=== PATIENT | male | born 1980 | race Caucasian/White ===

== ENCOUNTER 2020-04-05 07:30 | Inpatient (IN) | payer OTHER, SELFPAY ==
[2020-04-05] VITALS (13 sets, daily range): BP systolic 90–147; BP diastolic 61–92; PULSE 69–135; RESP 16–30; TEMP 36.7–38.7; O2SAT 92–100; BMI 30.7
--- NOTE | ~2020-04-05 | CT_ITS ---
EXAMINATION: CT abdomen pelvis w con DATE: 04/05/2020 09:18 INDICATION: Right lower quadrant abdominal pain for one day TECHNIQUE: Computed tomography (CT) of the abdomen and pelvis was performed with 100 cc Omnipaque 350 intravenous contrast. Automated exposure control and iterative reconstruction technique were employe d. Exam dose: 902.37 mGy-cm total exam DLP. COMPARISON: None. FINDINGS: There is mild atelectasis or scarring at the base of the middle lobe and right lower lobe. The lung bases are otherwise clear. Normal heart size. No pericardial or pleural effusion. Small sliding hiatal hernia. There is thickening of the distal esophageal wall, possibly due to esoph agitis. The liver, gallbladder, bile ducts, spleen, pancreas and pancreatic duct appear normal. Normal morpho logy of the adrenal glands. No renal mass lesion or urinary tract calculus or hydroureteronephrosis is evident. The urinary bladd er, prostate gland and seminal vesicles are unremarkable. Small fat-containing inguinal hernias, left larger than right. The appendix is thickened, measuring up to 12 mm diameter. There is adjacent mild fat stranding. Find ings suggest acute appendicitis. No abscess or free fluid is evident. There is minimal sigmoid colon diverticulosis; no CT evidence of diverticulitis. No bowel obstruction or bowel wall thickening, pneumatosis or intraperitoneal free air is noted other blackmon. Degenerative spurring of the thoracic and lumbar spine; no suspicious osteolytic or osteoblastic lesi ons are noted. IMPRESSION: Acute appendicitis Minimal sigmoid colon diverticulosis Small sliding hiatal hernia, possible distal esophagitis Bilateral small fat-containing inguinal hernias Dr. Ceballos telephoned the report to emergency room physician Dr. Iraheta on 04/05/2020 at 0929 hours. Reviewed, dictated and finalized at [facility]. Reviewed, dictated and finalized at [facility]. Y NUTRITIONIST IMPRESSION: Acute appendicitis Minimal sigmoid colon diverticulosis Small sliding hiatal hernia, possible distal esophagitis Bilateral small fat-containing inguinal hernias Dr. Ceballos telephoned the report to emergency room physician Dr. Iraheta on 021 at 0929 hours.
--- NOTE | 2020-04-05 07:36 | ED.ABDPAIN ---
HPI - Abdominal Pain General Chief Complaint: Abdominal Pain Stated Complaint: ABD pain Time Seen by Provider: 04/05/20 07:34 Source: RN notes reviewed History of Present Illness HPI narrative: Patient presents emergency department from home for right lower quadrant abdominal pain. Patient states pain began last night at 9 PM pain is located in the right lower quadrant does not radiate described as sharp and stabbing denies any fevers, nausea vomiting diarrhea or any other symptoms states he took no pain medication at home denies any other symptoms at this time Related Data Allergies Allergy/AdvReac Type Severity Reaction Status Date / Time amoxicillin Allergy Unknown Verified 04/05/20 08:13 Review of Systems Review of Systems: Narrative: Gen.: Denies fevers or chills ENT: Denies congestion Respiratory: Denies shortness of breath or cough CV: Denies chest pain or palpitations GI: Reports lower right lower quadrant abdominal pain, denies nausea, emesis or diarrhea denies burning, urgency, frequency or hematuria Musculoskeletal: Denies back pain or muscle pain Neuro: Denies numbness, tingling, weakness or focal weakness Skin: Denies rash Except as documented, all other systems reviewed and negative [facility] Past Medical History Medical History Patient denies significant medical history Surgical History Surgical History No history of previous surgery Social History Social History Social History: The patient lives at home with his mother and her caregiver. He has not had a PCP in years. Smoker of 1 PPD for about 22 years. Drinks alcohol every 3 days, about 3-4 drinks at night. 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 Gender identity (if verbalized by the patient): Male Exam Narrative: Exam Narrative: APPEARANCE: No acute distress, nontoxic, resting in bed HEENT: Normocephalic, atraumatic, OMM RESPIRATORY: No respiratory distress, clear to auscultation bilaterally with no rhonchi wheezing or rales CARDIOVASCULAR: RRR s murmur ABDOMINAL: Soft, nondistended, tender palpation right lower quadrant no tenderness right upper quadrant, left upper quadrant left lower quadrant no rebound or guarding MUSCULOSKELETAl: Moves all extremities. No clubbing, cyanosis or edema. NEURO: Awake and alert. Following commands, speech normal, no focal deficits SKIN:: Warm, dry. Normal Color PSYCHIATRIC: Normal affect/mood Course Course Emergency Course: Discussed with Dr. Mccallum. At this time request patient be started on Invanz and will take to the OR Discussed with patient plan for or in agreement at this time Vital Signs Vital signs: Vital Signs Temperature 98.1 F 04/05/20 08:08 Pulse Rate 94 04/05/20 08:08 Respiratory Rate 18 04/05/20 08:08 Blood Pressure 141/92 H 04/05/20 08:08 Pulse Oximetry 100 04/05/20 08:08 Temperature 98.1 F 04/05/20 08:08 Pulse Rate 88 04/05/20 11:10 Respiratory Rate 18 04/05/20 11:10 Blood Pressure 147/91 H 04/05/20 11:10 Pulse Oximetry 99 04/05/20 11:10 MDM - Abdominal Pain Lab Data Result diagrams: 04/05/20 08:08 04/05/20 08:08 Labs: Lab Results 04/05/20 04/05/20 04/05/20 Range/Units 07:57 08:08 08:08 WBC 13.6 H (4.5-10.0) K/mm3 RBC 4.89 (4.6-6.20) M/mm3 Hgb 16.6 (14.0-18.0) g/dL Hct 46.1 (42.0-52.0) % MCV 94.3 (80-100) fl MCH 33.9 (26-34) pg MCHC 36.0 (32-36) g/dl RDW 11.9 (11.5-14.5) % Plt Count
--- NOTE | 2020-04-05 08:07 | PC.NURSE ---
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 This RN tried 2 times to gain IV access with no success. Will have 2nd RN try. Will inform of this.
[2020-04-05 08:13] LABS: Add Urine Microscopic? YES; Appearance Urine Clear (Clear); Bilirubin Urine Negative (Negative); Blood Urine Negative (Negative); Color Urine Yellow (Yellow); Glucose Urine UA 1+ mg/dL (Negative); Ketones Urine Trace mg/dL (Negative); Leukocyte Esterase Ur Negative LEU/UL (Negative); Mucus Urine Rare /lpf; Nitrate Urine Negative (Negative); Protein Urine 1+ mg/dL (Negative); Specific Grav Ur 1.018 (1.001-1.035); WBC Urine 0-3 /hpf
[2020-04-05 08:17] LABS: Basophils Percent Auto 0.3 % (0.2-1.2); Eosinophils Absolute Auto 0.1 K/mm3 (0-0.3); Eosinophils Percent Auto 0.5 % (0-4.4); Hematocrit 46.1 % (42.0-52.0); Hemoglobin 16.6 g/dL (14.0-18.0); Immature Granulocyte Absolute 0.04 K/mm3 (0.00-0.031); Immature Granulocyte Percent A 0.3 % (0-0.5); Lymphocytes Absolute Auto 1.25 K/mm3 (0.9-3.2); Lymphocytes Percent Auto 9.2 % (18.3-44.2); Mean Corpuscular Hemoglobin 33.9 pg (26-34); Mean Corpuscular Volume 94.3 fl (80-100); Mean Platelet Volume 9.3 fl (7.4-10.4); Monocytes Percent Auto 7.3 % (2.6-8.5); Neutrophils Absolute Auto 11.2 K/mm3 (1.3-6.7); Neutrophils Percent Auto 82.4 % (45.5-73.1); Platelet Count Result 184 k/mm3 (150-375); Red Blood Count 4.89 M/mm3 (4.6-6.20); Red Cell Distribution Width 11.9 % (11.5-14.5); White Blood Count 13.6 K/mm3 (4.5-10.0)
[2020-04-05 08:31] LABS: Alanine Aminotransferase 82 U/L (4-50); Albumin Level 4.1 g/dL (3.5-5.1); Alkaline Phosphatase 137 U/L (38-126); Anion Gap 7 mmol/L (8-16); Aspartate Amino Transferase 66 U/L (17-59); Bilirubin,Total 0.7 mg/dL (0.2-1.3); Blood Urea Nitrogen 6 mg/dL (9-20); Calcium 8.8 mg/dL (8.4-10.2); Carbon Dioxide 26 mmol/L (22-30); Chloride 100 mmol/L (98-107); Estimated CRCL calculation 139 ml/min; Estimated Glomerular Filt Rate > 60; Glucose 153 mg/dL (75-110); Lipase 187 U/L (23-300); Potassium 3.7 mmol/L (3.4-5.0); Sodium 133 mmol/L (137-145)
--- NOTE | 2020-04-05 08:37 | PC.NURSE ---
IV access nurse here to try and start a line on pt.
[2020-04-05] MEDS: SODIUM CHLORIDE 0.9% IV 1,000 ML 999 ML IV CONT (08:56)
[2020-04-05] MEDS: KETOROLAC 30 MG/ML VIAL (*BKC) IV PUSH (08:56)
[2020-04-05] MEDS: ERTAPENEM 1 GM/NS 50 ML 1 GM/50 ML BAG IVPB (10:35)
--- NOTE | 2020-04-05 10:47 | PM.IMHP ---
H&P: HPI History of Present Illness Date/Time: 04/05/20 10:47 Chief Complaint: RLQ Abdominal pain Narrative: Oracio Aguirre is a 39 year old male with no known medical history, who presented to the ER with complaints of right lower quadrant abdominal pain. He reports an onset of abdominal pain around 9pm last night that was initially mild and in the mid upper abdomen. Over the next few hours, this pain began intensifying and localized in the right lower quadrant. Due to the unrelenting pain, he presented to the ER for evaluation. CT scan of the abdomen and pelvis showed acute appendicitis with no evidence of perforation or abscess. Labs showed white blood cell count of 13,600. Our service was contacted by the ER physician for surgical evaluation of acute appendicitis. The patient is now seen in the ER. He reports his abdominal pain is still in the RLQ but has improved some with rest. Denies nausea, vomiting, fever, chills, diarrhea, or any other complaints. No history of abdominal surgery in the past. He has not seen a primary care provider in many years. Denies any recent known contact with anyone who has tested positive for COVID-19 and denies any symptoms of loss of taste/smell, congestion, sore throat, headache, or cough. Review of Systems Review of Systems: All systems reviewed & are unremarkable except as noted in HPI and below Constitutional: Constitutional: Reports as per HPI, Denies chills, Denies fatigue, Denies fever(s), Denies headache(s) and Denies weakness Eyes: Eyes: Reports no additional eye complaints, Denies change in vision, Denies dry eyes and Denies eye pain ENT: Reports system reviewed and no additional complaints, except as documented, Denies dysphagia, Denies dizziness, Denies headache(s) and Denies hearing loss Cardiovascular: Cardiovascular: Reports no additional cardiovascular complaints, Denies chest pain, Denies pedal edema, Denies leg edema, Denies lightheadedness, Denies radiating jaw, neck or arm pain and Denies dyspnea Respiratory: Respiratory: Reports no additional respiratory complaints, Denies cough, Denies hemoptysis, Denies dyspnea and Denies wheezing Gastrointestinal: Gastrointestinal: Reports as per HPI, Reports no additional gastrointestinal complaints, Reports abdominal pain, Denies bloating, Denies change in bowel habits, Denies dysphagia, Denies diarrhea, Denies loose stools, Denies nausea and Denies vomiting Genitourinary: Genitourinary: Reports no additional male genitourinary complaints, Denies hematuria and Denies dysuria Musculoskeletal: Musculoskeletal: Reports no additional musculoskeletal complaints, Denies abnormal gait, Denies deformity, Denies joint swelling, Denies numbness and Denies tingling Integumentary/Breasts: Skin/Breast: Denies new lesions, Denies rash and Denies wounds Neurologic: Reports system reviewed and no additional complaints, except as documented, Denies abnormal gait, Denies dizziness, Denies headache(s), Denies numbness, Denies tingling and Denies weakness Psychiatric: Psychiatric: Reports no additional psychiatric complaints, Denies anxiety and Denies depression Endocrine: Endocrine: Denies fatigue PMFSH Past Medical History Medical History Patient denies significant medical history Surgical History Surgical History No history of previous surgery Social History Social History Social History: The patient lives at home with his mother and her caregiver. He has not had a PCP in years. Smoker of 1 PPD for about 22 years. Drinks alcohol every 3 days, about 3-4 drinks at night. Smoking packs per day: 1 Smoking cigarettes per day: 20.0 Years smoked: 22 Smoking pack-years: 22.00 Smoking status: Current every day smoker Tobacco type: cigarettes Alcohol intake: current Substance use: never L
--- NOTE | 2020-04-05 11:37 | WPDANESEPPF ---
Anes - Initial Pre Proc Eval Procedure: Operation Date: 04/05/20 13:00 Proposed Procedures p Laparoscopic Appendectomy - Miky Mccallum DO Date/Time: 04/05/20 11:37 Surgeon: Miky Mccallum DO Pre Op Diagnosis: Acute appendicitis Patient Data Age: 39 Gender: M Height: 1.88 m Weight: 104.5 kg Last Vital Signs Temp 38.7 C H 04/05/20 11:31 Pulse 135 H 04/05/20 11:31 Resp 30 H 04/05/20 11:31 BP 142/80 H 04/05/20 11:31 Pulse Ox 99 04/05/20 11:31 Allergies Allergy/AdvReac Type Severity Reaction Status Date / Time amoxicillin Allergy Unknown Verified 04/05/20 08:13 Laboratory Tests 04/05/20 04/05/20 04/05/20 07:57 08:08 08:08 WBC 13.6 K/mm3 H K/mm3 (4.5-10.0) RBC 4.89 M/mm3 M/mm3 (4.6-6.20) Hgb 16.6 g/dL g/dL (14.0-18.0) Hct 46.1 % % (42.0-52.0) MCV 94.3 fl fl (80-100) MCH 33.9 pg pg (26-34) MCHC 36.0 g/dl g/dl (32-36) RDW 11.9 % % (11.5-14.5) Plt Count 184 k/mm3 k/mm3 (150-375) MPV 9.3 fl fl (7.4-10.4) Immature Gran % (Auto) 0.3 % % (0-0.5) Neut % (Auto) 82.4 % H % (45.5-73.1) Lymph % (Auto) 9.2 % L % (18.3-44.2) [place] % (Auto) 7.3 % % (2.6-8.5) Eos % (Auto) 0.5 % % (0-4.4) Baso % (Auto) 0.3 % % (0.2-1.2) Lymph # (Auto) 1.25 K/mm3 K/mm3 (0.9-3.2) [place] # (Auto) 1.0 K/mm3 H K/mm3 (0.1-0.6) Eos # (Auto) 0.1 K/mm3 K/mm3 (0-0.3) Baso # (Auto) 0.0 K/mm3 K/mm3 (0.0-0.1) Abs Immat Gran (auto) 0.04 K/mm3 H K/mm3 (0.00-0.031) Absolute Neuts (auto) 11.2 K/mm3 H K/mm3 (1.3-6.7) Absolute Nucleated RBC 0.0 K/mm3 K/mm3 (0.0-0.012) Nucleated RBC % 0.0 % % (0.0-0.2) Sodium 133 mmol/L L mmol/L (137-145) Potassium 3.7 mmol/L mmol/L (3.4-5.0) Chloride 100 mmol/L mmol/L (98-107) Carbon Dioxide 26 mmol/L mmol/L (22-30) Anion Gap 7 mmol/L L mmol/L (8-16) BUN 6 mg/dL L mg/dL (9-20) Creatinine 0.70 mg/dL mg/dL (0.7-1.3) Estim Creat Clear Calc 139 ml/min ml/min Estimated GFR > 60 (59 - ) Glucose 153 mg/dL H mg/dL (75-110) Calcium 8.8 mg/dL mg/dL (8.4-10.2) Total Bilirubin 0.7 mg/dL mg/dL (0.2-1.3) AST 66 U/L H U/L (17-59) ALT 82 U/L H U/L (4-50) Alkaline Phosphatase 137 U/L H U/L (38-126) Total Protein 7.0 g/dL g/dL (6.3-8.2) Albumin 4.1 g/dL g/dL (3.5-5.1) Lipase 187 U/L U/L (23-300) Urine Color Yellow (Yellow) Urine Appearance Clear (Clear) Urine pH 7.0 (5.0-9.0) Ur Specific [place] 1.018 (1.001-1.035) Urine Protein 1+ mg/dL H mg/dL (Negative) Urine Glucose (UA) 1+ mg/dL H mg/dL (Negative) Urine Ketones Trace mg/dL mg/dL (Negative) Ur Blood (Man) Negative (Negative) Urine Nitrate Negative (Negative) Urine Bilirubin Negative (Negative) Urine Urobilinogen 2.0 mg/dL H mg/dL (<2.0) Leukocyte Esterase Rfl Negative ЮЛИЯ/UL ЮЛИЯ/UL (Negative) Urine RBC 3-5 /hpf H /hpf (0-2) Urine WBC 0-3 /hpf /hpf Urine Mucus Rare /lpf /lpf Patient hx anesthesia problems: none Family hx anesthesia problems: none [facility] Past Medical History Medical History Patient denies significant medical history Surgical History Surgical History No history of previous surgery Social History Social History Social History: The patient lives at home with his mother and her caregiver. He has not had a PCP in y
--- NOTE | 2020-04-05 12:19 | WPDHPUPDATE1 ---
History and Physical Update Update Date/Time: 04/05/20 12:19 History and Physical has been reviewed, including an updated exam of the patient. There are NO changes in the patient's condition. Risks, benefits, and alternatives have been discussed and questions answered. Patient agrees to proceed with procedure.
[2020-04-05] MEDS: ACETAMINOPHEN 500 MG TABLET 1000 MG PO (12:24)
[2020-04-05] MEDS: LACTATED RINGERS 1,000 ML 30 ML IV CONT ×2 (12:25→13:52)
[2020-04-05] MEDS: BUPIVACAINE HCL 0.5% PF 30 ML VIAL INFILTRATE (13:31)
--- NOTE | 2020-04-05 13:54 | PM.PROC ---
Procedure Note - Detailed Date of procedure: 04/05/20 Pre-op diagnosis: Acute appendicitis, Sepsis Post-op diagnosis: same Procedure performed: Laparoscopic Appendectomy Description of procedure: Procedure as well as risks, benefits, and alternatives were explained to the patient. The patient agreed to proceed. Written consent was obtained and placed in chart prior to procedure. The patient was brought back to surgical suite. He was placed supine on operating table. Time-out was done to confirm the patient and procedure. The patient was then intubated by the Anesthesia Department. His abdomen was prepped and draped in sterile fashion using chlorhexidine prep. A 5 mm incision was made just to the left of the patient's umbilicus and a 5 mm Optiview trocar was advanced through the abdominal layers under direct visualization. Once inside the peritoneal cavity, carbon dioxide insufflation was used to create a pneumoperitoneum. The camera was inserted and the abdomen was inspected. No immediate abnormalities were identified. The patient was then placed in slight Trendelenburg position and rotated to the left. A 5 mm incision was made in the suprapubic region in midline and a 5 mm trocar was inserted under direct visualization. A 12 mm incision was made in the left lower quadrant and a 12 mm trocar was inserted under direct visualization. The right lower quadrant was carefully inspected. The cecum was identified and then this was traced back to the appendix. The appendix was identified and grasped at the mesoappendix and lifted anteriorly. Careful blunt dissection was carried out at the base of the appendix through the mesoappendix using a [place] grasper. An Endo-KATIE 45 mm blue load stapler was then advanced across the base of the appendix and clamped and fired. A white reload was then clamped across the mesoappendix and fired. This freed up our appendix completely. It was then placed in an EndoCatch bag and removed through the left lower quadrant port. The staple lines were then inspected. Hemostasis appeared adequate and the staple lines appeared secure. The area was then irrigated with sterile saline. The pelvis was then carefully inspected and irrigated with sterile saline as well and the remainder of the abdomen was carefully inspected. The patient was then flattened out in bed. One final inspection was made around the abdominal cavity and no other abnormalities were seen. The left lower quadrant port was removed and a Marco-Anita cone was used to approximate the fascia with a 0 Vicryl simple interrupted suture. The remaining ports were then removed under direct visualization. The camera was removed and the pneumoperitoneum was released. 0.5% bupivacaine with epinephrine was infiltrated locally around each of the incisions. The skin of the incisions was then approximated using 4-0 Monocryl subcuticular suture and Exofin glue was applied on top. The patient was then awakened from anesthesia, extubated, and transferred to Recovery. Anesthesia: GETA and local (0.5% bupivicaine with epi) Surgeon: Miky Mccallum DO Estimated blood loss (mL): 5 Pathology: yes (Appendix) Complications: No immediate complications Condition: stable Disposition: floor Findings: This is a 39-year-old man who presented to the emergency department this morning with right lower quadrant pain that started around 9:00 p.m. last night. His pain is located in the right lower quadrant. He denied any prior symptoms before last night. In the emergency department a CT was obtained and this showed evidence of acute appendicitis. Decision was made to proceed with laparoscopic appendectomy, possible open. Well in the preoperative area he began experiencing fevers and was also becoming tachycardic. He was started on broad-spectrum IV antibiotics. Laparoscopic appendectomy was performed. The distal half of the appendix appeared gangrenous. There is no definite evidence
--- NOTE | 2020-04-05 15:36 | PC.NURSE ---
This patient, Oracio Aguirre, was admitted to 2 Medical Room 261-01. Patient/family oriented to hospital policies and general routines including ID bracelet, bed and alarms, visiting hours, pain management, procedures, bathroom and other care routines, personal items, smoking policy, room service/diet, and visiting hours. Information on how to activate the Rapid Response Team has been discussed. Patient/Family are encouraged to report perceived risks to care and to ask questions if they do not understand what they are told or what they should do.
--- NOTE | 2020-04-05 18:00 | PM.DS ---
DS: Admitting Diagnosis Admitting Diagnosis Admitting Diagnosis: Acute appendicitis DS: Discharge Diagnosis Discharge Diagnosis (1) Acute appendicitis: Code(s): K35.80 - Unspecified acute appendicitis Status: Acute DS: Summary Hospital Course Reason for hospitalization: acute appendicitis Hospital Course: this is a 40-year-old man who presented to the emergency department on 04/05/20 with right lower quadrant abdominal pain. His pain started the night before. Imaging in the emergency department showed evidence of acute appendicitis. He was then taken urgently for laparoscopic appendectomy. Surgery was uncomplicated, but the appendix did appear to have evidence of gangrene. Patient was admitted to the hospital postoperatively for continued treatment for intra-abdominal infection. That afternoon, he was seen leaving the facility several times to go outside to smoke. He was ambulating along distance to do this, and the nurses advised him that he needed to stay within the unit. The patient was adamant about being able to go out and smoke and felt that he did not need to be hospitalized for this. Since the patient was not compliant with the nurses recommendations and he was able to tolerate ambulating without much difficulty , the decision was made to discharge in with oral antibiotics and he was advised to return for any signs of recurrent infection. Time spent discussing smoking cessation with patient: 3 to 10 minutes Status at Discharge Functional status at discharge: independent ambulation Overall status at discharge: patient is progressing back to baseline Time Spent with Patient Time attestation: Total time spent providing and/or coordinating discharge services: Time spent: Less than 30 minutes DS: Data Data Completed and Pending Completed studies during hospitalization: Pending at discharge 04/05/20 13:28 Surgical [PTH] Routine Discharge Plan Discharge Attending physician on discharge: Miky Blum Consulting providers: Vazquez Daley ; Ester Cavanaugh ; Jose Ceballos Discharging Clinician: Miky Blum Patient Disposition: Home, Self-Care Activity: other - see discharge instructions Diet: other - see discharge instructions Wound Care Instructions: other - see discharge instructions Discharge Instructions: DISCHARGE INSTRUCTION SHEET FOR HERNIA, GALLBLADDER AND APPENDIX SURGERIES DR. BLUM PATIENT TO TAKE HOME 1. May shower in 24 hours, no soaking in bath x 2weeks. 2. Call office for: Wound increasingly painful or bleeding Vomiting Fever of greater than 101 degrees 3. If no bowel movement for three days, take 1 oz. (30 ml) Milk of Magnesia or MiraLax 17g 1 to 2 times daily. 4. No heavy lifting > 10-15 pounds x weeks for hernia repairs and 2 weeks for laparoscopic cholecystectomy or appendectomy. 5. No driving for 3 days or while taking narcotic pain medications. 6. Ice to surgical site for 48 hours (30 min on, then 30 min off). 7. Up walking 10-30 minutes three times per day. 8. Resume previous home medications. 9. Follow-up 10-14 days in office for wound check or as previously scheduled. ([phone]) 10. Oral pain medications prescription to be sent to pharmacy. Take Tylenol 500mg every 6 hours and Ibuprofen 600mg every 6 hours for the first 2 days, then as needed. 11. NUTRITION: Start out by drinking fluids and increase your diet as tolerated. If you experience nausea, try dry toast, crackers, and 7-UP. If nausea or vomiting persists, contact your surgeon?s office. 12. Gallbladders-Low Fat Diet for 2 weeks (send care note of low fat diet) 13. Inguinal Hernias-wear scrotal support for 48 hours 14. Abdominal Hernias-if sent home with abdominal binder, wear for the first 2 weeks (may remove to shower or at night to sleep).
--- NOTE | 2020-04-05 18:00 | PM.PNGS ---
Subjective Subjective Date/Time Seen: 04/05/20 18:00 Patient walked outside multiple times to smoke despite being offered a nicotene patch and being advised to stay in his hospital unit. He was informed of the hospital policies. Patient desires to be discharged home because he is feeling fine and doesn't see the need to stay. He was informed that due to his fever and tachycardia preop and the findings during surgery, he was kept in the hospital for close observation for possible ongoing infection. Patient still wanted to go home. Will discharge home with 10 days of Levaquin and Flagyl. Patient may call for follow up appointment. Objective Data Vital Signs Vital Signs: Vital Signs - 24 hr 04/05/20 08:08 04/05/20 10:43 04/05/20 11:10 Temperature 36.7 C Pulse Rate 94 69 88 Respiratory Rate 18 18 18 Blood Pressure 141/92 H 119/61 147/91 H Pulse Oximetry 100 92 99 04/05/20 11:31 04/05/20 13:52 04/05/20 14:05 Temperature 38.7 C H 37.1 C Pulse Rate 135 H 93 109 H Respiratory Rate 30 H 20 22 H Blood Pressure 142/80 H 94/62 L 90/61 L Pulse Oximetry 99 92 97 04/05/20 14:16 04/05/20 14:31 04/05/20 14:43 Temperature 37.1 C 37.1 C Pulse Rate 121 H 107 H 109 H Respiratory Rate 22 H 22 H 22 H Blood Pressure 106/74 110/77 108/79 Pulse Oximetry 97 95 95 04/05/20 15:05 04/05/20 15:20 04/05/20 15:50 Temperature 36.8 C 36.8 C 36.8 C Pulse Rate 108 H 73 76 Respiratory Rate 16 16 16 Blood Pressure 123/73 117/75 118/78 Pulse Oximetry 97 95 94 Intake/Output Intake/Output: Intake & Output 04/02/20 04/03/20 04/04/20 04/05/20 23:59 23:59 23:59 23:59 Intake Total 1400 Balance 1400 Meds/Results Medications: Active Medications Generic Name Dose Route Start Last Admin Trade Name Freq PRN Reason Stop Dose Admin Hydrocodone Bitart/Acetaminophen 1 tab 04/05/20 14:46 Hydrocodone/Acetaminophen (*Crx) 5-325 Mg Tablet PO Q4H PRN Pain Rated 4-6 Hydrocodone Bitart/Acetaminophen 1 tab 04/05/20 14:46 Hydrocodone/Acetaminophen (*Crx) 10-325 Mg Tablet PO Q6H PRN Pain Rated 7-10 Sodium Chloride 1,000 mls @ 125 mls/hr 04/05/20 10:50 Normal Saline Iv IV CONT .Q8H SHELL Ertapenem 1 gm in 50 mls @ 100 mls/hr 04/06/20 09:00 Invanz 1 Gm/Ns 50 Ml IVPB QAM SHELL Ibuprofen 600 mg 04/05/20 14:46 Ibuprofen 600 Mg Tablet PO Q6H PRN Mild Pain (1-3) or Fever Morphine Sulfate 2 mg 04/05/20 14:46 Morphine Sulfate (*Crx) 2 Mg/Ml Inj IV PUSH Q2H PRN Pain Rated 4-6 Morphine Sulfate 4 mg 04/05/20 14:46 Morphine Sulfate (*Crx) 4 Mg/Ml Inj IV PUSH Q2H PRN Pain Rated 7-10 Ondansetron HCl 4 mg 04/05/20 14:46 Ondansetron Inj 4 Mg/2 Ml Vial IV PUSH Q4H PRN Nausea And Vomiting Radiology Results: ITS Impressions Abdomen/Pelvis CT 04/05/20 09:20 IMPRESSION: Acute appendicitis Minimal sigmoid colon diverticulosis Small sliding hiatal hernia, possible distal esophagitis Bilateral small fat-containing inguinal hernias Dr. Ceballos telephoned the report to emergency room physician Dr. Iraheta on 04/05/2020 at 0929 hours. Labs Labs: Laboratory Results - last 24 hr 04/05/20 04/05/20 04/05/20 07:57 08:08 08:08 WBC 13.6 H RBC 4.89 Hgb 16.6 Hct 46.1 MCV 94.3 MCH 33.9 MCHC 36.0 RDW 11.9 Plt Count 184 MPV 9.3 Immature Gran % (Auto) 0.3 Neut % (Auto) 82.4 H Lymph % (Auto) 9.2 L [place] % (Auto) 7.3 Eos % (Auto) 0.5 Baso % (Auto) 0.3 Lymph # (Auto) 1.25 [place] # (Auto) 1.0 H Eos # (Auto) 0.1 Baso # (Auto) 0.0 Abs Immat Gran (auto) 0.04 H Absolute Neuts (auto) 11.2 H Absolute Nucleated RBC 0.0 Nucleated RBC % 0.0 Sodium 133 L Potassium 3.7 Chloride 100 Carbon Dioxide 26 Anion Gap 7 L BUN 6 L Creatinine 0.70 Estim Creat Clear Calc 139 Estimated GFR > 60 Glucose 153 H Calcium 8.8 Total Bilirubi
== END 2020-04-05 18:25 | disposition home or self-care (01) | DRG 234 ==
LOC: ANHED 10:21 → ANH2MED 11:07 → ANHED 11:19 → ANHSURGERY 11:21 → ANH2MED 15:10
PROVIDERS: Admitting Provider Surgery; Emergency Provider Emergency Medicine; Visit Provider Surgery
PROC: 0DTJ4ZZ Resection of Appendix, Percutaneous Endoscopic Approach (ICD-10-PCS; CPT 44970; principal; 2020-04-05 13:00)
DX: K35.80 Unspecified acute appendicitis (principal); F17.210 Nicotine dependence, cigarettes, uncomplicated; Z28.21 Immunization not carried out because of patient refusal; Z91.19 Patient's noncompliance with other medical treatment and regimen
CPT/HCPCS: 36415; 74177; 80053; 81001; 83690; 85025; 88304; 96361; 96365; 96375; 99285; A9270; J0330; J1100; J1335; J1885; J2250; J2405; J2704; J2710; J3010; J7030; J7120; Q9967